=== PATIENT | male | born 1945 | race Caucasian/White ===

== ENCOUNTER 2019-01-09 14:12 | Emergency (ER) | payer MEDICARE, BC ==
--- NOTE | 2019-01-09 14:59 | EDM.PDOC ---
ED HPI GENERAL MEDICAL PROBLEM - General Chief Complaint: Genitourinary Problem Stated Complaint: BURNING WHEN URINATING, AND RECTALLY, FEVER Time Seen by Provider: 01/09/19 14:45 Source of Information: Reports: Patient, Old Records History Limitations: Reports: No Limitations - History of Present Illness INITIAL COMMENTS - FREE TEXT/NARRATIVE: 73 yo male presents with mild dysuria and a sense of mild pressure in his anal area. Was recently constipated and had to strain considerably. No bleeding per rectum. No fever. Onset: Today Onset Date: 01/09/19 Duration: Day(s): (1), Constant Location: Reports: Other (bladder/urethra/anal region) Quality: Reports: Burning (with urination), Pressure (anal area) Severity: Mild Improves with: Reports: None Worsens with: Reports: None Context: Reports: Other (see HPI) Associated Symptoms: Reports: No Other Symptoms Treatments SOLAR SYSTEM INST[employer]ER: Reports: Other (see below) (none) Perineal Area Pain Score (Numeric/FACES): 9 - Related Data Allergies Allergy/AdvReac Type Severity Reaction Status Date / Time No Known Allergies Allergy Verified 10/04/18 07:19 Home Meds: Home Meds Aspirin 325 mg PO DAILY 10/04/18 [History] Dulaglutide [Trulicity] 1 injection SQ WEEKLY 10/04/18 [History] Furosemide [Lasix] 20 mg PO DAILY 10/04/18 [History] Gemfibrozil 1 tab PO BID 10/04/18 [History] Insulin Aspart [NovoLOG] 12 - 14 units SQ TID 10/04/18 [History] Insulin Glarg,Human.Rec.Analog [Lantus Solostar] 52 unit SUBCUT BEDTIME [History] Lisinopril 1 tab PO DAILY 10/04/18 [History] Metoprolol Succinate [Toprol XL] 200 mg PO DAILY 10/04/18 [History] Pravastatin [Pravachol] 80 mg PO BEDTIME 10/04/18 [History] amLODIPine Besylate [Norvasc] 10 mg PO DAILY 10/04/18 [History] metFORMIN [Glucophage] 1,000 mg PO BID 10/04/18 [History] Nitrofurantoin Monohyd/M-Cryst [Macrobid 100 mg Capsule] 100 mg PO Q12H #14 capsule 01/09/19 [Rx] Past Medical History HEENT History: Reports: Impaired Vision Cardiovascular History: Reports: High Cholesterol, Hypertension Musculoskeletal History: Reports: Fracture Other Musculoskeletal History: colar bone Endocrine/Metabolic History: Reports: Diabetes, Type II, Obesity/BMI 30+ Hematologic History: Reports: Blood Transfusion(s) - Infectious Disease History Infectious Disease History: Reports: Chicken Pox - Past Surgical History HEENT Surgical History: Reports: Cataract Surgery, LASIK GI Surgical History: Reports: Colonoscopy, Other (See Below) Other GI Surgeries/Procedures: ulcer surgery Social & Family History - Tobacco Use Smoking Status *Q: Never Smoker - Caffeine Use Caffeine Use: Reports: Coffee, Soda - Recreational Drug Use Recreational Drug Use: No ED ROS GENERAL - Review of Systems Review Of Systems: See Below Constitutional: Reports: No Symptoms HEENT: Reports: No Symptoms Respiratory: Reports: No Symptoms Cardiovascular: Reports: No Symptoms GI/Abdominal: Reports: Constipation (recently, not now). Denies: Abdominal Pain , Black Stool, Bloody Stool, Diarrhea, Decreased Appetite, Distension, Hematemesis, Hematochezia, Nausea, Vomiting : Reports: Dysuria (mild). Denies: Hematuria, Incontinence, Urgency, Urinary Retention Musculoskeletal: Reports: No Symptoms Skin: Reports: No Symptoms Neurological: Reports: No Symptoms Psychiatric: Reports: No Symptoms ED EXAM, RENAL/ - Physical Exam Exam: See Below Exam Limited By: No Limitations General Appearance: Alert, WD/WN, No Apparent Distress Eye Exam: Bilateral Eye: Normal Inspection Ears: Normal External Exam, Normal Canal, Hearing Grossly Normal Nose: Normal Inspection, No Blood Throat/Mouth: Normal Inspection, Normal Lips, Normal Oropharynx, Normal Voice, No Airway Compromise Head: Atraumatic, Normocephalic Neck: Normal Inspection Respiratory/Chest: No Respiratory Distress, Lungs Clear, Normal Breath Sounds, No Accessory Muscle Use Cardiovascular: Regular Rate, Rhythm, No Edema GI/Abdominal: Normal Bowel Sounds, Soft, Non-Tender, No Distention (Male) Exam: Normal Inspection Rectal (Males) Exam: Normal Exam. No: Hemorrhoids, Rectal Fissure Back Exam: Normal Inspection. No: CVA Tenderness (R), CVA Tenderness (L) Extremities: Normal Inspection, Normal Range of Motion, Non-Tender, No Pedal Edema Neurological: Alert, Oriented, CN II-XII Intact, Normal Cognition, No Motor/ Sensory Deficits Psychiatric: Normal Affect, Normal Mood Skin Exam: Warm, Dry, Intact, Normal Color, No Rash Course - Vital Signs Text/Narrative:: post-void bladder scan ~ 2 ml Last Recorded V/S: Last Vital Signs Temp 37.2 C 01/09/19 14:32 Pulse 86 01/09/19 14:32 Resp 11 L 01/09/19 14:32 BP 166/70 H 01/09/19 14:32 Pulse Ox 93 L 01/09/19 14:32 - Orders/Labs/Meds Orders: Active Orders 24 hr Category Date Time Status Bladder Scan [RC] ASDIRECTED Care 01/09/19 14:38 Active Labs: Laboratory Tests 01/09/19 Range/Units 14:31 Urine Color Yellow Urine Appearance Slightly cloudy Urine pH 6.0 (4.5-8.0) Ur Specific Ramsey 1.020 (1.008-1.030) Urine Protein 100 H (NEGATIVE) mg/dL Urine Glucose (UA) 50 H (NEGATIVE) mg/dL Urine Ketones 15 H (NEGATIVE) mg/dL Urine Occult Blood Moderate (NEGATIVE) Urine Nitrite Negative (NEGAITVE) Urine Bilirubin Negative (NEGATIVE) Urine Urobilinogen Normal (NORMAL) mg/dL Ur Leukocyte Esterase Moderate (NEGATIVE) Urine RBC 0-5 (0-5) Urine WBC 5-10 H (0-5) Ur Epithelial Cells Rare Amorphous Sediment Not seen Urine Bacteria Few Urine Mucus Few Departure - Departure Time of Disposition: 14:59 Disposition: Home, Self-Care 01 Condition: Good Clinical Impression: Cystitis, Internal hemorrhoids - Discharge Information *PRESCRIPTION DRUG MONITORING PROGRAM REVIEWED*: No *COPY OF PRESCRIPTION DRUG MONITORING REPORT IN PATIENT DENG: No Prescriptions: Nitrofurantoin Monohyd/M-Cryst [Macrobid 100 mg Capsule] 100 mg PO Q12H #14 capsule Instructions: High-Fiber Diet Referrals: Lenny Aguilera MD [Primary Care Provider] - Additional Instructions: Use Macrobid every 12 hrs until gone. If your dysuria does not resolve by the time you finish your Macrobid then recheck. Use the Anusol HC suppositories as directed. Use a fiber product once or twice daily to keep your stools soft to prevent aggravating your hemorrhoids. Recheck with your doctor if not improving. - My Orders Last 24 Hours: My Active Orders 01/09/19 14:38 Bladder Scan [RC] ASDIRECTED - Assessment/Plan Last 24 Hours: My Active Orders 01/09/19 14:38 Bladder Scan [RC] ASDIRECTED
== END 2019-01-09 15:10 | disposition home or self-care (01) ==
LOC: JP.ED 14:12
DX: N30.90 Cystitis, unspecified without hematuria (principal); K64.8 Other hemorrhoids; E78.00 Pure hypercholesterolemia, unspecified; I10 Essential (primary) hypertension; E11.9 Type 2 diabetes mellitus without complications; Z79.82 Long term (current) use of aspirin; Z79.899 Other long term (current) drug therapy; Z79.4 Long term (current) use of insulin
CPT/HCPCS: 51798; 81001; 99283

== ENCOUNTER 2023-07-05 07:55 | Emergency (ER) | payer BC, MEDICARE ==
[2023-07-05] MEDS ORDERED: Aspirin 81 MG Tab.Chew PO ONE (08:24)
[2023-07-05] MEDS ORDERED: Ketorolac 30 MG/ML SDV IM ONE (08:25)
[2023-07-05 08:37] LABS: BASOPHILS PERCENT AUTO 0.2 % (0.1-1.3); EOSINOPHILS ABSOLUTE AUTO 0.12 K/uL (0.00-0.40); EOSINOPHILS PERCENT AUTO 1.1 % (0.0-5.4); HEMATOCRIT 41.5 % (38.4-49.7); IMMATURE GRAN ABSOLUTE AUTO 0.06 K/uL (0.00-0.23); IMMATURE GRAN PERCENT AUTO 0.5 % (0.0-0.7); LYMPHOCYTES ABSOLUTE AUTO 1.08 K/uL (0.8-3.3); LYMPHOCYTES PERCENT AUTO 9.9 % (11.4-47.7); MEAN CORPUSCULAR HEMOGLOBIN 31.5 pg (31.6-35.5); MEAN CORPUSCULAR HGB CONC 33.7 g/dL (31.6-35.5); MEAN CORPUSCULAR VOLUME 93.5 fL (81.4-99.0); MONOCYTES ABSOLUTE AUTO 0.78 K/uL (0.20-0.90); MONOCYTES PERCENT AUTO 7.1 % (3.3-12.6); NEUTROPHILS ABSOLUTE AUTO 8.88 K/uL (1.0-7.6); NEUTROPHILS PERCENT AUTO 81.2 % (40.0-78.1); PLATELET COUNT,PLT 144 K/uL (130-375); RED BLOOD CELL COUNT 4.44 M/uL (4.14-5.76); WHITE BLOOD CELL COUNT,WBC 10.9 K/uL (3.2-11.0)
[2023-07-05 08:40] LABS: BASOPHILS ABSOLUTE AUTO 0.02 K/uL (0.00-0.10)
[2023-07-05 09:02] LABS: ANION GAP 10.1 mmol/L (5.0-14.0); CALCIUM 9.2 mg/dL (8.5-10.1); CREATININE 0.9 mg/dL (0.8-1.3); EST CRCL DRUG DOSING (CG) 62.22 mL/min; POTASSIUM,K 4.1 mmol/L (3.6-5.2); TROPONIN I HIGH SENSITIVITY 16.7 pg/mL (<=60.3)
== END 2023-07-05 11:43 | disposition home or self-care (01) ==
LOC: JP.ED 07:55
DX: R07.89 Other chest pain (principal); E11.9 Type 2 diabetes mellitus without complications; E66.9 Obesity, unspecified; E78.00 Pure hypercholesterolemia, unspecified; I10 Essential (primary) hypertension; Z79.4 Long term (current) use of insulin; Z79.84 Long term (current) use of oral hypoglycemic drugs; Z79.899 Other long term (current) drug therapy; Z68.41 Body mass index [BMI] 40.0-44.9, adult
CPT/HCPCS: 36415; 71046; 80048; 84484; 85025; 93005; 96372; 99285; A9270; J1885; 93010; 99283

== ENCOUNTER 2023-07-16 11:26 | Emergency (ER) | payer MEDICARE ==
[2023-07-16] MEDS ORDERED: Sodium Chloride 0.9% 10 ML Syringe FLUSH PRN (12:00)
[2023-07-16 12:05] LABS: BASOPHILS PERCENT AUTO 0.2 % (0.1-1.3); EOSINOPHILS ABSOLUTE AUTO 0.13 K/uL (0.00-0.40); EOSINOPHILS PERCENT AUTO 1.4 % (0.0-5.4); HEMATOCRIT 42.2 % (38.4-49.7); HEMOGLOBIN 14.4 g/dL (12.9-16.9); IMMATURE GRAN ABSOLUTE AUTO 0.03 K/uL (0.00-0.23); IMMATURE GRAN PERCENT AUTO 0.3 % (0.0-0.7); LYMPHOCYTES ABSOLUTE AUTO 1.62 K/uL (0.8-3.3); LYMPHOCYTES PERCENT AUTO 17.6 % (11.4-47.7); MEAN CORPUSCULAR HGB CONC 34.1 g/dL (31.6-35.5); MEAN CORPUSCULAR VOLUME 93.8 fL (81.4-99.0); MONOCYTES ABSOLUTE AUTO 0.68 K/uL (0.20-0.90); MONOCYTES PERCENT AUTO 7.4 % (3.3-12.6); NEUTROPHILS PERCENT AUTO 73.1 % (40.0-78.1); PLATELET COUNT,PLT 156 K/uL (130-375); WHITE BLOOD CELL COUNT,WBC 9.2 K/uL (3.2-11.0)
[2023-07-16 12:08] LABS: BASOPHILS ABSOLUTE AUTO 0.02 K/uL (0.00-0.10)
[2023-07-16 12:31] LABS: MAGNESIUM 1.5 mg/dL (1.8-2.4)
[2023-07-16 12:31] LABS: ANION GAP 11.9 mmol/L (5.0-14.0); CALCIUM 9.1 mg/dL (8.5-10.1); CREATININE 0.9 mg/dL (0.8-1.3); EST CRCL DRUG DOSING (CG) 62.22 mL/min; POTASSIUM,K 4.3 mmol/L (3.6-5.2)
[2023-07-16 12:32] LABS: TSH ULTRASENSITIVE 2.721 uIU/mL (0.358-3.740)
[2023-07-16] MEDS ORDERED: Magnesium Oxide 400 MG Tab PO ONE (12:53)
== END 2023-07-16 13:14 | disposition home or self-care (01) ==
LOC: JP.ED 11:26
DX: I49.8 Other specified cardiac arrhythmias (principal); E83.42 Hypomagnesemia; I10 Essential (primary) hypertension; E11.9 Type 2 diabetes mellitus without complications; E78.00 Pure hypercholesterolemia, unspecified; E66.9 Obesity, unspecified; Z68.41 Body mass index [BMI] 40.0-44.9, adult; Z79.82 Long term (current) use of aspirin; Z79.84 Long term (current) use of oral hypoglycemic drugs; Z79.4 Long term (current) use of insulin; Z79.899 Other long term (current) drug therapy
CPT/HCPCS: 36415; 80048; 83735; 84443; 85025; 93005; 99284; A9270

== ENCOUNTER 2023-10-15 10:45 | Emergency (ER) | payer MEDICARE ==
[2023-10-15 11:59] LABS: BASOPHILS PERCENT AUTO 0.2 % (0.1-1.3); EOSINOPHILS ABSOLUTE AUTO 0.08 K/uL (0.00-0.40); EOSINOPHILS PERCENT AUTO 0.8 % (0.0-5.4); HEMATOCRIT 44.2 % (38.4-49.7); IMMATURE GRAN ABSOLUTE AUTO 0.04 K/uL (0.00-0.23); IMMATURE GRAN PERCENT AUTO 0.4 % (0.0-0.7); LYMPHOCYTES ABSOLUTE AUTO 1.36 K/uL (0.8-3.3); LYMPHOCYTES PERCENT AUTO 12.9 % (11.4-47.7); MEAN CORPUSCULAR HEMOGLOBIN 31.6 pg (31.6-35.5); MEAN CORPUSCULAR HGB CONC 33.9 g/dL (31.6-35.5); MEAN CORPUSCULAR VOLUME 93.1 fL (81.4-99.0); MONOCYTES ABSOLUTE AUTO 0.61 K/uL (0.20-0.90); MONOCYTES PERCENT AUTO 5.8 % (3.3-12.6); NEUTROPHILS ABSOLUTE AUTO 8.46 K/uL (1.0-7.6); NEUTROPHILS PERCENT AUTO 79.9 % (40.0-78.1); PLATELET COUNT,PLT 167 K/uL (130-375); RED BLOOD CELL COUNT 4.75 M/uL (4.14-5.76); WHITE BLOOD CELL COUNT,WBC 10.6 K/uL (3.2-11.0)
[2023-10-15 12:08] LABS: BASOPHILS ABSOLUTE AUTO 0.02 K/uL (0.00-0.10)
[2023-10-15 12:24] LABS: CALCIUM 9.1 mg/dL (8.5-10.1); CREATININE 0.9 mg/dL (0.8-1.3); EST CRCL DRUG DOSING (CG) 62.22 mL/min; MAGNESIUM 1.6 mg/dL (1.8-2.4); POTASSIUM,K 4.4 mmol/L (3.6-5.2)
[2023-10-15 12:25] LABS: ANION GAP 13.4 mmol/L (5.0-14.0)
== END 2023-10-15 12:40 | disposition home or self-care (01) ==
LOC: JP.ED 10:45
DX: R00.1 Bradycardia, unspecified (principal); I49.3 Ventricular premature depolarization; E11.9 Type 2 diabetes mellitus without complications; I10 Essential (primary) hypertension; Z79.82 Long term (current) use of aspirin; Z79.4 Long term (current) use of insulin; Z79.899 Other long term (current) drug therapy
CPT/HCPCS: 36415; 80048; 82800; 83735; 84484; 85025; 99283

== ENCOUNTER 2023-10-22 21:39 | Emergency (ER) | payer MEDICARE ==
[2023-10-22 22:58] LABS: ANION GAP 11.3 mmol/L (5.0-14.0); CALCIUM 9.1 mg/dL (8.5-10.1); POTASSIUM,K 4.3 mmol/L (3.6-5.2)
[2023-10-22 23:13] LABS: MAGNESIUM 1.6 mg/dL (1.8-2.4); TSH ULTRASENSITIVE 3.431 uIU/mL (0.358-3.740)
[2023-10-22] MEDS ORDERED: amLODIPine 5 MG Tab PO ONE (23:33)
[2023-10-22] MEDS ORDERED: Magnesium Oxide 400 MG Tab PO ONE (23:35)
== END 2023-10-23 | disposition home or self-care (01) ==
LOC: JP.ED 21:39
DX: I10 Essential (primary) hypertension (principal); E83.42 Hypomagnesemia; E78.00 Pure hypercholesterolemia, unspecified; E11.9 Type 2 diabetes mellitus without complications; E66.9 Obesity, unspecified; Z86.16 Personal history of COVID-19; Z79.84 Long term (current) use of oral hypoglycemic drugs; Z79.899 Other long term (current) drug therapy; Z79.82 Long term (current) use of aspirin; Z68.41 Body mass index [BMI] 40.0-44.9, adult
CPT/HCPCS: 36415; 80048; 83735; 84443; 99283; 99284; A9270

== ENCOUNTER 2024-08-16 17:32 | Emergency (ER) | payer MEDICARE ==
[2024-08-16 19:00] LABS: BASOPHILS ABSOLUTE AUTO 0.04 K/uL (0.00-0.10); BASOPHILS PERCENT AUTO 0.3 % (0.1-1.3); EOSINOPHILS ABSOLUTE AUTO 0.19 K/uL (0.00-0.40); EOSINOPHILS PERCENT AUTO 1.6 % (0.0-5.4); HEMATOCRIT 39.1 % (38.4-49.7); HEMOGLOBIN 13.6 g/dL (12.9-16.9); IMMATURE GRAN ABSOLUTE AUTO 0.03 K/uL (0.00-0.23); IMMATURE GRAN PERCENT AUTO 0.3 % (0.0-0.7); LYMPHOCYTES ABSOLUTE AUTO 1.71 K/uL (0.8-3.3); LYMPHOCYTES PERCENT AUTO 14.3 % (11.4-47.7); MEAN CORPUSCULAR HEMOGLOBIN 32.5 pg (31.6-35.5); MEAN CORPUSCULAR HGB CONC 34.8 g/dL (31.6-35.5); MEAN CORPUSCULAR VOLUME 93.5 fL (81.4-99.0); MONOCYTES ABSOLUTE AUTO 0.68 K/uL (0.20-0.90); MONOCYTES PERCENT AUTO 5.7 % (3.3-12.6); NEUTROPHILS ABSOLUTE AUTO 9.27 K/uL (1.0-7.6); NEUTROPHILS PERCENT AUTO 77.8 % (40.0-78.1); PLATELET COUNT,PLT 215 K/uL (130-375); RED BLOOD CELL COUNT 4.18 M/uL (4.14-5.76); WHITE BLOOD CELL COUNT,WBC 11.9 K/uL (3.2-11.0)
== END 2024-08-16 19:41 | disposition home or self-care (01) ==
LOC: JP.ED 17:32
DX: K91.870 Postprocedural hematoma of a digestive system organ or structure following a digestive system procedure (principal); I10 Essential (primary) hypertension; E78.00 Pure hypercholesterolemia, unspecified; E11.9 Type 2 diabetes mellitus without complications; E66.9 Obesity, unspecified; Z86.16 Personal history of COVID-19; Z79.82 Long term (current) use of aspirin; Z79.84 Long term (current) use of oral hypoglycemic drugs; Z79.4 Long term (current) use of insulin; Z79.899 Other long term (current) drug therapy; Z68.35 Body mass index [BMI] 35.0-35.9, adult
CPT/HCPCS: 36415; 85025; 99283